=== PATIENT | male | born 2000 | race African-American/Black ===

== ENCOUNTER 2018-05-03 00:26 | Emergency (ER) | payer MEDICAID, OTHER ==
[~2018-05-03] VITALS: Ht 185.4 cm; Wt 66.0 kg
[2018-05-03 08:00] LABS: *COCAINE SCREEN URINE NEGATIVE (NEGATIVE); CANNABINOID URINE SCREEN PRESUMTIVE POSITIVE (NEGATIVE); METHADONE URINE SCREEN NEGATIVE (NEGATIVE); OPIATES URINE SCREEN NEGATIVE (NEGATIVE); PHENCYCLIDINE URINE SCREEN NEGATIVE (NEGATIVE)
[2018-05-03 08:01] LABS: *AMPHETAMINES SCREEN URINE PRESUMTIVE POSITIVE (NEGATIVE); *BARBITURATES SCREEN URINE NEGATIVE (NEGATIVE); *BENZODIAZEPINES SCREEN URINE NEGATIVE (NEGATIVE)
[2018-05-03 11:42] LABS: BASOPHILS % 0.5 % (0.0-2.0); EOSINOPHILS % 0.6 % (0.0-5.0); HEMOGLOBIN. 15.6 g/dL (14.0-18.0); LYMPHOCYTES % 53.6 % (20.0-50.0); MEAN CORPUSCULAR HEMOGLOBIN 29.1 pg (28.0-32.0); MEAN CORPUSCULAR VOLUME 85.5 fL (80.0-94.0); MEAN PLATELET VOLUME 6.6 fl (7.4-10.4); MONOCYTES % 7.9 % (2.0-8.0); NEUTROPHILS % 37.4 % (40.0-76.0); PLATELET 268 x1000/uL (130-400); RED BLOOD CELL COUNT 5.38 mill/uL (4.7-6.1); RED CELL DISTRIBUTION WIDTH 13.2 % (11.6-14.6)
[2018-05-03 11:45] LABS: CHLORIDE 106 mEq/L (98-107)
[2018-05-03 11:49] LABS: ETHANOL BLOOD < 10 mg/dL
[2018-05-04 15:31] VITALS: BP 112/70
== END 2018-05-04 15:35 | disposition home or self-care (01) ==
LOC: ER 00:26
DX: F15.10 Other stimulant abuse, uncomplicated (principal); F12.10 Cannabis abuse, uncomplicated; F16.10 Hallucinogen abuse, uncomplicated; F17.210 Nicotine dependence, cigarettes, uncomplicated; Z59.0 Homelessness
CPT/HCPCS: 36415; 80048; 80305; 80307; 80320; 80329; 85025; 99285; Z7610; G0480

== ENCOUNTER 2018-09-29 00:56 | Emergency (ER) | payer MEDICARE, OTHER ==
[~2018-09-29] VITALS: Ht 172.7 cm; Wt 84.0 kg
[2018-09-29] MEDS ORDERED: LORA-250 PO (03:11)
[2018-09-29] MEDS ORDERED: ARIP30TA2 PO (03:11)
[2018-09-29] MEDS ORDERED: OLAN5TAB3 PO (03:11)
[2018-09-29] MEDS ORDERED: OLANZAPINE 10 MG/VIAL IM ONE (03:45)
[2018-09-29 05:43] LABS: BASOPHILS % 0.4 % (0.0-2.0); EOSINOPHILS % 0.1 % (0.0-5.0); HEMATOCRIT. 44.6 % (42.0-52.0); LYMPHOCYTES % 40.8 % (20.0-50.0); MEAN CORPUSCULAR HEMOGLOBIN 29.3 pg (28.0-32.0); MEAN PLATELET VOLUME 7.6 fl (7.4-10.4); MONOCYTES % 7.1 % (2.0-8.0); NEUTROPHILS % 51.6 % (40.0-76.0); PLATELET 248 x1000/uL (130-400); RED BLOOD CELL COUNT 5.13 mill/uL (4.7-6.1); RED CELL DISTRIBUTION WIDTH 12.6 % (11.6-14.6)
[2018-09-29 05:45] LABS: CHLORIDE 108 mEq/L (98-107)
[2018-09-29 05:50] LABS: ETHANOL BLOOD < 10 mg/dL
[2018-09-29 08:01] LABS: CLARITY URINE CLEAR (CLEAR); COLOR URINE DARK YELLOW (YELLOW); KETONES URINE 1+ (NEGATIVE); LEUKOCYTE ESTERASE URINE NEGATIVE (NEGATIVE); NITRITE URINE NEGATIVE (NEGATIVE); OCCULT BLOOD URINE NEGATIVE (NEGATIVE); PH URINE 5.5 (4.5-8.0); PROTEIN URINE 2+ (NEGATIVE)
[2018-09-29 08:35] LABS: *AMPHETAMINES SCREEN URINE PRESUMTIVE POSITIVE (NEGATIVE); *BARBITURATES SCREEN URINE NEGATIVE (NEGATIVE); *BENZODIAZEPINES SCREEN URINE NEGATIVE (NEGATIVE); *COCAINE SCREEN URINE NEGATIVE (NEGATIVE); METHADONE URINE SCREEN NEGATIVE (NEGATIVE)
[2018-09-29 08:37] LABS: CANNABINOID URINE SCREEN PRESUMTIVE POSITIVE (NEGATIVE); OPIATES URINE SCREEN NEGATIVE (NEGATIVE); PHENCYCLIDINE URINE SCREEN NEGATIVE (NEGATIVE)
[2018-09-29 11:05] VITALS: BP 108/67
== END 2018-09-29 11:30 | disposition home or self-care (01) ==
LOC: ER 00:56
DX: F98.9 Unspecified behavioral and emotional disorders with onset usually occurring in childhood and adolescence (principal); F17.200 Nicotine dependence, unspecified, uncomplicated; Z79.899 Other long term (current) drug therapy
CPT/HCPCS: 36415; 80053; 80305; 80320; 81003; 85025; 96372; 99284; J3490; G0480

== ENCOUNTER 2019-01-30 11:31 | Emergency (ER) | payer MEDICARE, MEDICAID ==
[~2019-01-30] VITALS: Ht 185.4 cm; Wt 82.0 kg
[~2019-01-30 11:31] MED LIST: ARIP30TA2 PO; LORA-250 PO; OLAN5TAB3 PO
[2019-01-30 11:57] VITALS: BP 130/79
== END 2019-01-30 14:15 | disposition left against medical advice (07) ==
LOC: ER 11:45
DX: Z53.21 Procedure and treatment not carried out due to patient leaving prior to being seen by health care provider (principal); F17.200 Nicotine dependence, unspecified, uncomplicated

== ENCOUNTER 2020-03-31 03:51 | Emergency (ER) | payer MEDICARE, MEDICAID ==
[~2020-03-31] VITALS: Ht 177.8 cm; Wt 170.0 kg
[2020-03-31 05:03] VITALS: BP 128/72
== END 2020-03-31 05:05 | disposition home or self-care (01) ==
LOC: ER 04:23
DX: F15.10 Other stimulant abuse, uncomplicated (principal); F12.10 Cannabis abuse, uncomplicated; F20.9 Schizophrenia, unspecified; F17.290 Nicotine dependence, other tobacco product, uncomplicated; F10.229 Alcohol dependence with intoxication, unspecified; Y90.0 Blood alcohol level of less than 20 mg/100 ml
CPT/HCPCS: 99281; 99406

== ENCOUNTER 2021-12-15 01:31 | Emergency (ER) | payer MEDICAID, MEDICARE, OTHER ==
[~2021-12-15] VITALS: Ht 182.9 cm; Wt 80.0 kg
[2021-12-15 02:34] LABS: BASOPHILS % 0.4 % (0.0-2.0); EOSINOPHILS % 0.2 % (0.0-5.0); HEMOGLOBIN. 14.9 g/dL (14.0-18.0); LYMPHOCYTES % 39.3 % (20.0-50.0); MEAN CORPUSCULAR HEMOGLOBIN 29.1 pg (28.0-32.0); MEAN PLATELET VOLUME 7.5 fl (7.4-10.4); MONOCYTES % 5.5 % (2.0-8.0); NEUTROPHILS % 54.6 % (40.0-76.0); PLATELET 249 x1000/uL (130-400); RED BLOOD CELL COUNT 5.11 mill/uL (4.7-6.1); RED CELL DISTRIBUTION WIDTH 13.9 % (11.6-14.6)
[2021-12-15 02:39] LABS: CHLORIDE 104 mEq/L (98-107)
[2021-12-15 02:47] LABS: ETHANOL BLOOD < 10 mg/dL
[2021-12-15] MEDS ORDERED: KETOROLAC 60MG/2ML VIAL IM ONE (03:00)
[2021-12-15 05:00] VITALS: BP 101/51
[2021-12-15] MEDS ORDERED: IBUP-2029 MT (05:31)
[2021-12-15 06:30] LABS: COLOR URINE YELLOW (YELLOW)
[2021-12-15 06:31] LABS: CLARITY URINE CLEAR (CLEAR); OCCULT BLOOD URINE 3+ (NEGATIVE); PROTEIN URINE TRACE (NEGATIVE); SPECIFIC GRAVITY URINE 1.015 (1.005-1.030)
[2021-12-15 06:32] LABS: KETONES URINE NEGATIVE (NEGATIVE); LEUKOCYTE ESTERASE URINE NEGATIVE (NEGATIVE); NITRITE URINE NEGATIVE (NEGATIVE); UROBILINOGEN URINE 0.2 E.U./dL (0.2-1.0)
[2021-12-15 06:49] LABS: *AMPHETAMINES SCREEN URINE NEGATIVE (NEGATIVE); *BARBITURATES SCREEN URINE NEGATIVE (NEGATIVE); *BENZODIAZEPINES SCREEN URINE NEGATIVE (NEGATIVE); *COCAINE SCREEN URINE NEGATIVE (NEGATIVE); CANNABINOID URINE SCREEN NEGATIVE (NEGATIVE); METHADONE URINE SCREEN NEGATIVE (NEGATIVE); OPIATES URINE SCREEN NEGATIVE (NEGATIVE); PHENCYCLIDINE URINE SCREEN NEGATIVE (NEGATIVE)
== END 2021-12-15 08:33 | disposition home or self-care (01) ==
LOC: ER 01:31
DX: R11.2 Nausea with vomiting, unspecified (principal); R10.9 Unspecified abdominal pain; M54.9 Dorsalgia, unspecified
CPT/HCPCS: 36415; 74176; 80053; 80305; 80320; 81003; 83690; 85025; 96372; 99284; J1885; G0480

== ENCOUNTER 2023-05-04 23:37 | Emergency (ER) | payer MEDICARE, OTHER ==
[~2023-05-04] VITALS: Ht 182.9 cm; Wt 82.0 kg
[~2023-05-04 23:37] MED LIST changes: +IBUP-2029 MT
[2023-05-05] MEDS: DIAZEPAM 5 MG/ML 2ML CPJ IM ONE (00:21)
[2023-05-05] MEDS: DIPHENHYDRAMINE 50MG/ML VIAL IM ONE (00:21)
[2023-05-05] MEDS: HALOPERIDOL LACTATE 5MG/ML VIAL IM ONE (00:21)
[2023-05-05 00:34] LABS: BASOPHILS % 0.5 % (0.0-2.0); EOSINOPHILS % 0.2 % (0.0-5.0); HEMATOCRIT. 37.9 % (42.0-52.0); HEMOGLOBIN. 12.7 g/dL (14.0-18.0); LYMPHOCYTES % 30.3 % (20.0-50.0); MEAN CORPUSCULAR HGB CONC 33.6 g/dL (31.0-37.0); MEAN CORPUSCULAR VOLUME 86.1 fL (80.0-94.0); MONOCYTES % 12.2 % (2.0-8.0); NEUTROPHILS % 56.8 % (40.0-76.0); PLATELET 287 x1000/uL (130-400); RED CELL DISTRIBUTION WIDTH 13.9 % (11.6-14.6); WHITE BLOOD COUNT 6.6 x1000/uL (4.5-11.0)
[2023-05-05 00:45] LABS: ACETAMINOPHEN < 2 ug/mL (10-30); ALANINE AMINOTRANSFERASE 63 IU/L (10-49); ALBUMIN 5.1 g/dL (3.2-4.8); ASPARTATE AMINOTRANSFERASE 88 IU/L (<34); BILIRUBIN TOTAL 1.7 mg/dL (0.1-1.0); CALCIUM 9.5 mg/dL (8.7-10.4); CARBON DIOXIDE 27 mEq/L (21-32); CHLORIDE 100 mEq/L (98-107); GLUCOSE 77 mg/dL (70-105); POTASSIUM 3.8 mEq/L (3.5-5.1); PROTEIN TOTAL 8.1 g/dL (6.0-8.3); SODIUM 137 mEq/L (136-145); UREA NITROGEN BLOOD 21 mg/dL (9-23)
[2023-05-05 00:47] LABS: ETHANOL BLOOD < 10 mg/dL (<10)
[2023-05-05 02:31] LABS: *AMPHETAMINES SCREEN URINE PRESUMPTIVE POSITIVE (NEGATIVE); *BARBITURATES SCREEN URINE NEGATIVE (NEGATIVE); *BENZODIAZEPINES SCREEN URINE NEGATIVE (NEGATIVE); *COCAINE SCREEN URINE NEGATIVE (NEGATIVE); CANNABINOID URINE SCREEN NEGATIVE (NEGATIVE); ECSTASY MDMA SCREEN URINE CONF.TEST INDICATED (NEGATIVE); METHADONE URINE SCREEN Neg (NEGATIVE); OPIATES URINE SCREEN NEGATIVE (NEGATIVE); PHENCYCLIDINE URINE SCREEN NEGATIVE (NEGATIVE)
[2023-05-05 03:30] VITALS: O2SAT 100
[2023-05-05] MEDS: DIPHENHYDRAMINE 25MG CAPSULE PO ONE (08:32)
[2023-05-05] MEDS: OLANZAPINE 5MG TABLET PO SCH (09:29)
[2023-05-05 18:46] VITALS: BP 122/85; PULSE 87; RESP 16; TEMP 97.6
== END 2023-05-05 19:54 ==
LOC: ER 23:37
DX: R45.851 Suicidal ideations (principal); R45.850 Homicidal ideations; F12.90 Cannabis use, unspecified, uncomplicated; F15.90 Other stimulant use, unspecified, uncomplicated; F10.20 Alcohol dependence, uncomplicated; Z20.822 Contact with and (suspected) exposure to COVID-19; Y90.0 Blood alcohol level of less than 20 mg/100 ml
CPT/HCPCS: 36415; 93005; 96372; 99285; 80053; 80305; 80307; 80329; 80320; 85025; 87426; Q0163; J1200; J1630; G0480

== ENCOUNTER 2023-08-02 20:33 | Emergency (ER) | payer MEDICARE ==
[~2023-08-02] VITALS: Ht 185.4 cm; Wt 73.0 kg
[2023-08-03] MEDS: HALOPERIDOL LACTATE 5MG/ML VIAL IM ONE (03:37)
[2023-08-03] MEDS: LORAZEPAM 2MG/ML INJ IM ONE (03:37)
[2023-08-03] MEDS: DIPHENHYDRAMINE 50MG/ML VIAL IM ONE (03:37)
[2023-08-03 04:35] LABS: BASOPHILS % 0.3 % (0.0-2.0); CLARITY URINE CLEAR (CLEAR); COLOR URINE YELLOW (YELLOW); EOSINOPHILS % 0.1 % (0.0-5.0); GLUCOSE URINE NEGATIVE (NEGATIVE); HEMATOCRIT. 42.6 % (42.0-52.0); HEMOGLOBIN. 13.9 g/dL (14.0-18.0); KETONES URINE NEGATIVE (NEGATIVE); LEUKOCYTE ESTERASE URINE NEGATIVE (NEGATIVE); LYMPHOCYTES % 44.3 % (20.0-50.0); MEAN CORPUSCULAR HEMOGLOBIN 29.4 pg (28.0-32.0); MEAN CORPUSCULAR HGB CONC 32.6 g/dL (31.0-37.0); MEAN CORPUSCULAR VOLUME 90.1 fL (80.0-94.0); MEAN PLATELET VOLUME 7.1 fl (7.4-10.4); MONOCYTES % 9.4 % (2.0-8.0); NEUTROPHILS % 45.9 % (40.0-76.0); NITRITE URINE NEGATIVE (NEGATIVE); OCCULT BLOOD URINE TRACE (NEGATIVE); PH URINE 6.5 (4.5-8.0); PLATELET 321 x1000/uL (130-400); PROTEIN URINE TRACE (NEGATIVE); RED BLOOD CELL COUNT 4.73 mill/uL (4.7-6.1); RED CELL DISTRIBUTION WIDTH 13.3 % (11.6-14.6); SPECIFIC GRAVITY URINE 1.029 (1.005-1.030); WHITE BLOOD COUNT 8.2 x1000/uL (4.5-11.0)
[2023-08-03 04:41] LABS: CHLORIDE 104 mEq/L (98-107); POTASSIUM 3.3 mEq/L (3.5-5.1); SODIUM 141 mEq/L (136-145)
[2023-08-03 04:42] LABS: CALCIUM 9.8 mg/dL (8.7-10.4); CARBON DIOXIDE 17 mEq/L (21-32)
[2023-08-03 04:43] LABS: *AMPHETAMINES SCREEN URINE PRESUMPTIVE POSITIVE (NEGATIVE); *BARBITURATES SCREEN URINE NEGATIVE (NEGATIVE); *BENZODIAZEPINES SCREEN URINE NEGATIVE (NEGATIVE); *COCAINE SCREEN URINE NEGATIVE (NEGATIVE); CANNABINOID URINE SCREEN NEGATIVE (NEGATIVE); ECSTASY MDMA SCREEN URINE CONF.TEST INDICATED (NEGATIVE); METHADONE URINE SCREEN NEGATIVE (NEGATIVE); OPIATES URINE SCREEN NEGATIVE (NEGATIVE); PHENCYCLIDINE URINE SCREEN NEGATIVE (NEGATIVE)
[2023-08-03 04:45] LABS: WBC URINE 0-2 /hpf (0-2)
[2023-08-03 04:46] LABS: BACTERIA URINE 1+; MUCUS URINE 1+ /lpf (NONE/TRACE); SQUAMOUS EPITHELIAL CELL URINE FEW /lpf (RARE/1+)
[2023-08-03 04:47] LABS: CREATININE 1.1 mg/dL (0.6-1.3); GLUCOSE 99 mg/dL (70-105); UREA NITROGEN BLOOD 14 mg/dL (9-23)
[2023-08-03 04:49] LABS: ACETAMINOPHEN < 2 ug/mL (10-30)
[2023-08-03 04:51] LABS: ETHANOL BLOOD < 10 mg/dL (<10)
[2023-08-03 05:00] VITALS: O2SAT 98
[2023-08-03 18:22] VITALS: BP 129/88; PULSE 90; RESP 16; TEMP 98.1
== END 2023-08-03 18:47 ==
LOC: ER 20:33
DX: F20.9 Schizophrenia, unspecified (principal); Z20.822 Contact with and (suspected) exposure to COVID-19
CPT/HCPCS: 36415; 99285; 80305; 80048; 81003; 80307; 80329; 80320; 85025; 96372; 87426; J1200; J1630; J2060; G0480

== ENCOUNTER 2023-08-15 23:23 | Emergency (ER) | payer MEDICARE ==
[~2023-08-15] VITALS: Ht 182.9 cm; Wt 88.0 kg
[2023-08-15 23:37] VITALS: O2SAT 99
[2023-08-16 01:14] LABS: BASOPHILS % 0.2 % (0.0-2.0); EOSINOPHILS % 0.2 % (0.0-5.0); HEMATOCRIT. 42.6 % (42.0-52.0); HEMOGLOBIN. 14.1 g/dL (14.0-18.0); MEAN CORPUSCULAR HEMOGLOBIN 29.1 pg (28.0-32.0); MEAN CORPUSCULAR HGB CONC 33.1 g/dL (31.0-37.0); MEAN CORPUSCULAR VOLUME 87.9 fL (80.0-94.0); MEAN PLATELET VOLUME 6.7 fl (7.4-10.4); MONOCYTES % 9.1 % (2.0-8.0); NEUTROPHILS % 42.5 % (40.0-76.0); PLATELET 293 x1000/uL (130-400); RED BLOOD CELL COUNT 4.84 mill/uL (4.7-6.1); RED CELL DISTRIBUTION WIDTH 13.6 % (11.6-14.6); WHITE BLOOD COUNT 5.2 x1000/uL (4.5-11.0)
[2023-08-16 01:38] LABS: CHLORIDE 103 mEq/L (98-107); POTASSIUM 3.5 mEq/L (3.5-5.1); SODIUM 138 mEq/L (136-145)
[2023-08-16 01:39] LABS: CALCIUM 9.6 mg/dL (8.7-10.4); CARBON DIOXIDE 26 mEq/L (21-32)
[2023-08-16 01:44] LABS: CREATININE 1.2 mg/dL (0.6-1.3); GLUCOSE 107 mg/dL (70-105); UREA NITROGEN BLOOD 11 mg/dL (9-23)
[2023-08-16 01:46] LABS: ACETAMINOPHEN < 2 ug/mL (10-30)
[2023-08-16 01:49] LABS: ETHANOL BLOOD < 10 mg/dL (<10)
[2023-08-16 12:40] VITALS: BP 122/65; PULSE 89; RESP 18; TEMP 97.8
== END 2023-08-16 16:27 | disposition home or self-care (01) ==
LOC: ER 23:23
DX: F23 Brief psychotic disorder (principal); F32.9 Major depressive disorder, single episode, unspecified
CPT/HCPCS: 36415; 80048; 80307; 80320; 80329; 85025; 99285; G0480

== ENCOUNTER 2023-10-14 00:09 | Emergency (ER) | payer MEDICARE ==
[~2023-10-14] VITALS: Ht 182.9 cm; Wt 85.0 kg
[2023-10-14 00:19] VITALS: O2SAT 99
[2023-10-14 01:31] LABS: CARBON DIOXIDE 29 mEq/L (21-32); CHLORIDE 104 mEq/L (98-107); POTASSIUM 3.5 mEq/L (3.5-5.1); SODIUM 140 mEq/L (136-145)
[2023-10-14 01:32] LABS: CALCIUM 9.5 mg/dL (8.7-10.4)
[2023-10-14 01:37] LABS: CREATININE 1.1 mg/dL (0.6-1.3); GLUCOSE 56 mg/dL (70-105); UREA NITROGEN BLOOD 8 mg/dL (9-23)
[2023-10-14] MEDS: OLANZAPINE 5MG TABLET PO SCH (01:53)
[2023-10-14 04:29] LABS: BASOPHILS % 0.2 % (0.0-2.0); HEMATOCRIT. 41.9 % (42.0-52.0); HEMOGLOBIN. 13.7 g/dL (14.0-18.0); LYMPHOCYTES % 55.4 % (20.0-50.0); MEAN CORPUSCULAR HGB CONC 32.8 g/dL (31.0-37.0); MEAN CORPUSCULAR VOLUME 88.2 fL (80.0-94.0); MEAN PLATELET VOLUME 7.6 fl (7.4-10.4); MONOCYTES % 6.5 % (2.0-8.0); NEUTROPHILS % 37.9 % (40.0-76.0); PLATELET 278 x1000/uL (130-400); RED BLOOD CELL COUNT 4.75 mill/uL (4.7-6.1); RED CELL DISTRIBUTION WIDTH 13.2 % (11.6-14.6); WHITE BLOOD COUNT 5.5 x1000/uL (4.5-11.0)
[2023-10-14 04:42] LABS: ACETAMINOPHEN < 2 ug/mL (10-30); ALANINE AMINOTRANSFERASE 15 IU/L (10-49); ALBUMIN 4.8 g/dL (3.2-4.8); ASPARTATE AMINOTRANSFERASE 25 IU/L (<34); BILIRUBIN DIRECT 0.2 mg/dL (<=3.0); BILIRUBIN TOTAL 0.5 mg/dL (0.1-1.0); PROTEIN TOTAL 7.1 g/dL (6.0-8.3)
[2023-10-14 04:55] LABS: ETHANOL BLOOD < 10 mg/dL (<10)
[2023-10-14 07:44] VITALS: BP 112/68; PULSE 87; RESP 18; TEMP 36.83628; O2SAT 99
[2023-10-14] MEDS: OLANZAPINE 5MG TABLET ODT PO SCH (10:52)
== END 2023-10-14 12:42 | disposition home or self-care (01) ==
LOC: ER 00:49
DX: F29 Unspecified psychosis not due to a substance or known physiological condition (principal); E16.1 Other hypoglycemia; F32.A Depression, unspecified; F20.9 Schizophrenia, unspecified
CPT/HCPCS: 36415; 80048; 80076; 80307; 80320; 80329; 85025; 99283; 99284; G0480

== ENCOUNTER 2023-10-14 11:40 | Emergency (ER) | payer MEDICARE ==
[~2023-10-14] VITALS: Ht 185.4 cm; Wt 82.0 kg
[2023-10-14 11:52] VITALS: BP 117/77; PULSE 90; RESP 18; TEMP 98.8; O2SAT 100
== END 2023-10-14 12:27 | disposition home or self-care (01) ==
LOC: ER 11:40
DX: Z00.00 Encounter for general adult medical examination without abnormal findings (principal)
CPT/HCPCS: 99281

== ENCOUNTER 2024-05-10 20:33 | Emergency (ER) | payer MEDICARE, MEDICAID ==
[~2024-05-10] VITALS: Ht 182.9 cm; Wt 74.0 kg
[2024-05-10 20:37] VITALS: BP 126/82; PULSE 72; RESP 16; TEMP 36.6; O2SAT 99
[2024-05-10] MEDS: ACETAMINOPHEN 325MG TABLET PO STA (22:32)
[2024-05-10 23:57] LABS: BASOPHILS % 0.7 % (0.0-2.0); EOSINOPHILS % 0.2 % (0.0-5.0); HEMATOCRIT. 34.1 % (42.0-52.0); HEMOGLOBIN. 11.4 g/dL (14.0-18.0); LYMPHOCYTES % 16.2 % (20.0-50.0); MEAN CORPUSCULAR HEMOGLOBIN 27.3 pg (28.0-32.0); MEAN CORPUSCULAR HGB CONC 33.4 g/dL (31.0-37.0); MEAN CORPUSCULAR VOLUME 81.8 fL (80.0-94.0); MEAN PLATELET VOLUME 6.6 fl (7.4-10.4); MONOCYTES % 7.4 % (2.0-8.0); NEUTROPHILS % 75.5 % (40.0-76.0); PLATELET 484 x1000/uL (130-400); RED BLOOD CELL COUNT 4.17 mill/uL (4.7-6.1); RED CELL DISTRIBUTION WIDTH 15.7 % (11.6-14.6); WHITE BLOOD COUNT 10.8 x1000/uL (4.5-11.0)
[2024-05-11 00:07] LABS: CHLORIDE 99 mEq/L (98-107); POTASSIUM 3.3 mEq/L (3.5-5.1); SODIUM 136 mEq/L (136-145)
[2024-05-11 00:08] LABS: CARBON DIOXIDE 25 mEq/L (21-32)
[2024-05-11 00:09] LABS: CALCIUM 9.9 mg/dL (8.7-10.4)
[2024-05-11 00:13] LABS: CREATININE 0.8 mg/dL (0.6-1.3); GLUCOSE 103 mg/dL (70-105); UREA NITROGEN BLOOD 13 mg/dL (9-23)
[2024-05-11] MEDS: ACETAMINOPHEN 325MG TABLET PO NR (00:45)
== END 2024-05-11 02:30 | disposition home or self-care (01) ==
LOC: ER 20:33
DX: R53.1 Weakness (principal); R60.0 Localized edema; F10.90 Alcohol use, unspecified, uncomplicated; F12.90 Cannabis use, unspecified, uncomplicated; Y90.9 Presence of alcohol in blood, level not specified
CPT/HCPCS: 36415; 71045; 80048; 83880; 85025; 93970; 99284

== ENCOUNTER 2024-05-11 02:52 | Emergency (ER) | payer MEDICARE, MEDICAID ==
[~2024-05-11] VITALS: Ht 185.4 cm; Wt 72.0 kg
[2024-05-11 03:06] VITALS: O2SAT 97
[2024-05-11 03:54] VITALS: BP 128/81; PULSE 99; RESP 16; TEMP 36.7; O2SAT 100
== END 2024-05-11 06:35 | disposition home or self-care (01) ==
LOC: ER 03:04
DX: M79.89 Other specified soft tissue disorders (principal); M79.606 Pain in leg, unspecified; F10.90 Alcohol use, unspecified, uncomplicated; F12.90 Cannabis use, unspecified, uncomplicated; Y90.9 Presence of alcohol in blood, level not specified
CPT/HCPCS: 99281